=== PATIENT | male | born 1995 | race Two or more races ===

== ENCOUNTER 2020-10-23 18:16 | Emergency (ER) | payer MEDICAID, OTHER ==
[~2020-10-23] VITALS: Ht 172.7 cm; Wt 88.5 kg
[2020-10-23 18:23] VITALS: BP 112/80
== END 2020-10-23 18:32 | disposition left against medical advice (07) ==
LOC: ER 18:19
DX: R11.2 Nausea with vomiting, unspecified (principal); R42 Dizziness and giddiness; Z53.21 Procedure and treatment not carried out due to patient leaving prior to being seen by health care provider